=== PATIENT | male | born 1940 | race Caucasian/White ===

== ENCOUNTER 2017-08-03 05:59 | Day surgery (SDC) | payer OTHER ==
[2017-07-30 14:44] VITALS: BMI 29.2
[2017-08-03 10:23] VITALS: TEMP 98.2
[2017-08-03 12:07] VITALS: BP 140/70; PULSE 60
== END 2017-08-03 11:35 | disposition home or self-care (01) ==
LOC: FASU 05:59
PROVIDERS: ATTEND Ophthalmology
PROC: 08U107Z Supplement of Left Eye with Autologous Tissue Substitute, Open Approach (ICD-10-PCS; principal; 2017-08-03)
PROC: 089 Eye, Drainage (ICD-10-PCS; 2017-08-03)
PROC: 089 Eye, Drainage (ICD-10-PCS; 2017-08-03)
PROC: 08BR0ZZ Excision of Left Lower Eyelid, Open Approach (ICD-10-PCS; 2017-08-03)
PROC: 08BQ0ZZ Excision of Right Lower Eyelid, Open Approach (ICD-10-PCS; 2017-08-03)
DX: H04.553 Acquired stenosis of bilateral nasolacrimal duct (principal); H04.203 Unspecified epiphora, bilateral; H02.89 Other specified disorders of eyelid; H11.823 Conjunctivochalasis, bilateral; H02.102 Unspecified ectropion of right lower eyelid; H02.105 Unspecified ectropion of left lower eyelid
CPT/HCPCS: 88304-TC; 94760